=== PATIENT | male | born 1980 | race African-American/Black ===

== ENCOUNTER 2018-08-08 15:52 | Emergency (ER) | payer SELFPAY ==
--- NOTE | 2018-08-08 16:14 | PDOC ---
Suture Removal/Wound Check HPI - History of Present Illness Stated Complaint: REMOVE STITCHES Time Seen by Provider: 08/08/18 16:01 History Source: Yes: Patient, Family Exam Limitations: Yes: No Limitations Past History - Travel Traveled outside of the country in the last 30 days: No Close contact w/someone who was outside of country & ill: No - Past Medical History Allergies/Adverse Reactions: Allergies Allergy/AdvReac Type Severity Reaction Status Date / Time No Known Allergies Allergy Verified 08/08/18 16:15 Home Medications: Ambulatory Orders Cephalexin [Keflex] 500 mg PO Q6H #28 capsule 08/08/18 Suture Removal/Wound Check PE - Physical Exam Laceration/Wound Check Symptoms: reports: Pain, Redness Current Severity Level: Moderate *Review of Systems - Review of Systems Constitutional: No: Chills, Fever Musculoskeletal: Yes: Other (Hand pain/tightness) *Physical Exam - Physical Exam General Appearance: Yes: Nourished, Appropriately Dressed Integumentary: positive: Other (4 right hand lacerations, stutured, dried blood and some surrounding erythema on palmar wound) Medical Decision Making - Medical Decision Making 08/08/18 16:18 17 sutures removed. Will send for hand xray to r/o retained fb. Rx Keflex for cellulitis. 08/08/18 17:02 SRay prelim read: no fb. *DC/Admit/Observation/Transfer Diagnosis at time of Disposition: Visit for suture removal, Cellulitis - Discharge Dispostion Disposition: HOME Condition at time of disposition: Stable Decision to Admit order: No - Prescriptions Prescriptions: Cephalexin [Keflex] 500 mg PO Q6H #28 capsule - Referrals - Patient Instructions Printed Discharge Instructions: DI for Suture Removal Additional Instructions: Return for worsening redness around the wound or any other concerning symptoms. - Post Discharge Activity
[2018-08-08 16:16] VITALS: BP 125/81; PULSE 104; TEMP 98; BMI 22.4
== END 2018-08-08 17:11 | disposition home or self-care (01) ==
LOC: JERFT 15:52
DX: Z48.817 Encounter for surgical aftercare following surgery on the skin and subcutaneous tissue (principal); Z48.02 Encounter for removal of sutures
CPT/HCPCS: 73130-TC-RT-FY; 99281-25